=== PATIENT | male | born 1955 | race Caucasian/White ===

== ENCOUNTER → 2020-02-17 | Outpatient (CLI) | payer MEDICARE, MEDICAID ==
[~2020-02-17] MED LIST: AMLO5TAB88 PO; ATOR40TA70 PO; GLIP10TA10 PO; METF-416 PO
== END | disposition home or self-care (01) ==
LOC: LAB 08:19
PROVIDERS: ATTEND Specialist
DX: Z01.818 Encounter for other preprocedural examination (principal); Z11.59 Encounter for screening for other viral diseases
CPT/HCPCS: 87635

== ENCOUNTER 2020-02-21 06:05 | Day surgery (SDC) | payer MEDICARE, MEDICAID ==
[~2020-02-21] VITALS: Ht 167.6 cm; Wt 77.1 kg
[2020-02-21] MEDS ORDERED: BUPIVACAINE HCL 0.5% (5MG/ML) 50ML ONE (07:14)
[2020-02-21] MEDS ORDERED: SKIN ADHESIVE 0.7 GM EA TOP ONE (07:14)
[2020-02-21] MEDS ORDERED: LIDOCAINE HCL 1% 20ML VIAL (Pyxis) INJ ONE (07:14)
[2020-02-21] MEDS ORDERED: BACITRACIN 50,000 UNITS/VIAL ONE (07:15)
[2020-02-21] MEDS ORDERED: PROPOFOL 200MG/20ML VIAL IV ONE (07:37)
[2020-02-21] MEDS ORDERED: ROCURONIUM BROMIDE 10MG/ML VIAL 5ML IV ONE (07:37)
[2020-02-21] MEDS ORDERED: FENTANYL CITRATE/PF 50MCG/ML 2ML VIAL ONE ×2 (07:37→07:49)
[2020-02-21] MEDS ORDERED: NEOSTIGMINE METHYLSULFATE 1MG/ML 10 ML VIAL ONE (07:37)
[2020-02-21] MEDS ORDERED: CEFAZOLIN SODIUM 1000MG/VIAL ONE (07:38)
[2020-02-21] MEDS ORDERED: SODIUM CHLORIDE 0.9% 10ML VIAL ONE (07:38)
[2020-02-21] MEDS ORDERED: METOCLOPRAMIDE HCL 10MG/2ML VIAL ONE (07:38)
[2020-02-21] MEDS ORDERED: SUCCINYLCHOLINE CHLORIDE 200MG/10ML IV ONE (07:38)
[2020-02-21] MEDS ORDERED: LIDOCAINE HCL/PF 1% 10 MG/ML 5ML VIAL ONE (07:38)
[2020-02-21] MEDS ORDERED: PHENYLEPHRINE HCL 10 MG/ML 1ML (IV VIAL) IV ONE (07:38)
[2020-02-21] MEDS ORDERED: EPHEDRINE SULFATE 50MG/ML VIAL ONE (07:38)
[2020-02-21] MEDS ORDERED: ONDANSETRON HCL 4MG/2ML INJ ONE (07:38)
[2020-02-21] MEDS ORDERED: MIDAZOLAM HCL 2 MG/2 ML VIAL ONE (07:38)
[2020-02-21] MEDS ORDERED: GLYCOPYRROLATE 0.2 MG/ML 2ML VIAL ONE (07:38)
[2020-02-21] MEDS ORDERED: SODIUM CHLORIDE 0.9% 1,000 ML IV ONE (09:03)
[2020-02-21] MEDS ORDERED: MEPERIDINE HCL/PF 25MG/ML CPJ IV PRN (09:15)
[2020-02-21] MEDS ORDERED: MORPHINE SULFATE 2 MG/ML CPJ (NOT FOR IM USE) IV PRN (09:15)
[2020-02-21] MEDS ORDERED: ONDANSETRON HCL 4MG/2ML INJ IV PRN (09:15)
[2020-02-21] MEDS ORDERED: HYDROMORPHONE HCL/PF 2MG/ML CPJ IV PRN (09:15)
[2020-02-21] MEDS ORDERED: HYDROCODONE/ACETAMINOPHEN 5/325MG TABLET PO PRN (09:45)
[2020-02-21] MEDS ORDERED: KETOROLAC 30MG/ML VIAL IV SCH (09:45)
== END 2020-02-21 11:15 | disposition home or self-care (01) ==
LOC: OR 06:05
PROVIDERS: ATTEND Specialist
DX: D17.22 Benign lipomatous neoplasm of skin and subcutaneous tissue of left arm (principal); L72.3 Sebaceous cyst; I10 Essential (primary) hypertension; E11.9 Type 2 diabetes mellitus without complications; E78.5 Hyperlipidemia, unspecified; R20.8 Other disturbances of skin sensation; Z79.84 Long term (current) use of oral hypoglycemic drugs; Z79.899 Other long term (current) drug therapy
CPT/HCPCS: 11406; 82962; 88304; J0330; J0690; J2250; J2405; J2704; J2765; J3010; J3490; J2370; J2710